=== PATIENT | male | born 1950 | race Caucasian/White ===

== ENCOUNTER 2021-07-12 09:52 | Day surgery (SDC) | payer OTHER ==
[~2021-07-12] VITALS: Ht 182.9 cm; Wt 90.7 kg
[~2021-07-12 09:52] MED LIST: DIAZ5TAB4 PO; LIPA1CAP18 PO; MELO15TA12 PO; OMEP-272 PO; TRAM50TA4 PO
[2021-07-12] MEDS ORDERED: 0.9%NACL 1000ML 1,000 ML IV ONE (10:13)
[2021-07-12 10:44] VITALS: BP 127/58
[2021-07-12] MEDS ORDERED: EPHEDRINE SULFATE 50 MG/ML AMPULE ONE (12:24)
[2021-07-12] MEDS ORDERED: PROPOFOL 10 MG/ML 20ML VIAL IV ONE (12:24)
== END 2021-07-12 13:45 | disposition home or self-care (01) ==
LOC: DAH 09:52 → ENDO 09:52
PROVIDERS: ATTEND Internal Medicine Gastroenterology
DX: R93.2 Abnormal findings on diagnostic imaging of liver and biliary tract (principal); K86.1 Other chronic pancreatitis; Z20.822 Contact with and (suspected) exposure to COVID-19; K21.9 Gastro-esophageal reflux disease without esophagitis; K29.50 Unspecified chronic gastritis without bleeding; Z98.890 Other specified postprocedural states; Z79.899 Other long term (current) drug therapy; Z90.49 Acquired absence of other specified parts of digestive tract; Z72.89 Other problems related to lifestyle
CPT/HCPCS: 43259; 87635; 93005; A4215 ×2; A4221; A4222; A4223; A4606; A4620; A4657; A4663; C9803; J2704; J3490; J7030

== ENCOUNTER → 2022-07-30 | Outpatient (CLI) | payer OTHER ==
[~2022-07-30] MED LIST changes: +GADOTERATE MEGLUMINE 10 MMOL/20 ML VIAL IV ONE
== END | disposition home or self-care (01) ==
LOC: RAH 08:42
PROVIDERS: ATTEND Internal Medicine
DX: R93.2 Abnormal findings on diagnostic imaging of liver and biliary tract (principal)
CPT/HCPCS: 74183; A9575

== ENCOUNTER 2023-10-22 08:05 | Day surgery (SDC) | payer OTHER ==
[2023-10-22] VITALS (14 sets, daily range): BP systolic 100–131; BP diastolic 51–79; PULSE 47–60; RESP 14–20
[~2023-10-22] VITALS: Ht 182.9 cm; Wt 90.7 kg
[~2023-10-22 08:05] MED LIST changes: +0.9%NACL 1000ML 1,000 ML IV ONE; -DIAZ5TAB4 PO; -GADOTERATE MEGLUMINE 10 MMOL/20 ML VIAL IV ONE; -MELO15TA12 PO; -TRAM50TA4 PO
[2023-10-22] MEDS ORDERED: PROPOFOL 10 MG/ML 20ML VIAL IV ONE ×2 (11:17→11:56)
== END 2023-10-22 13:30 | disposition home or self-care (01) ==
LOC: ENDO 08:05 → DAH 08:05 → ENDO 13:30
PROVIDERS: ATTEND Internal Medicine Gastroenterology
DX: R93.5 Abnormal findings on diagnostic imaging of other abdominal regions, including retroperitoneum (principal); R10.11 Right upper quadrant pain; K86.1 Other chronic pancreatitis; K86.89 Other specified diseases of pancreas; K76.0 Fatty (change of) liver, not elsewhere classified; K21.9 Gastro-esophageal reflux disease without esophagitis; Z90.49 Acquired absence of other specified parts of digestive tract; Z86.19 Personal history of other infectious and parasitic diseases
CPT/HCPCS: 43237; J7030 ×2; J2704; A4620; A4215 ×2; A4223; A7002; A4222; A4221; A4663; A4606; J3490

== ENCOUNTER 2025-02-17 09:21 | Day surgery (SDC) | payer OTHER ==
[~2025-02-17] VITALS: Ht 182.9 cm; Wt 88.5 kg
[2025-02-17] VITALS (14 sets, daily range): BP systolic 116–140; BP diastolic 47–72; PULSE 47–60; RESP 15–20; TEMP 97.3–97.7
[~2025-02-17 09:21] MED LIST changes: -0.9%NACL 1000ML 1,000 ML IV ONE; -OMEP-272 PO; +OMEP40CA21 PO; +ROSU40 PO
[2025-02-17] MEDS ORDERED: INDOMETHACIN 100 MG SUPP.RECT RC ONE (09:30)
[2025-02-17] MEDS: 0.9%NACL 1000ML 1,000 ML IV ONE (09:42)
[2025-02-17] MEDS ORDERED: SUCCINYLCHOLINE CHLORIDE 20 MG/ML 10 ML VIAL ONE (11:34)
[2025-02-17] MEDS ORDERED: ondanSETRON 4MG INJ ONE (11:34)
[2025-02-17] MEDS ORDERED: proPOFol 10 MG/ML 20ML VIAL IV ONE (11:34)
[2025-02-17] MEDS: ondanSETRON 4MG INJ ONE (12:49)
[2025-02-17] MEDS ORDERED: IOHEXOL-350 50ML VIAL IV ONE (12:53)
--- NOTE | 2025-02-17 13:02 | HMCIMG ---
Fluoroscopic guidance History: CHOLECOCHOLITHIASIS Fluoroscopic guidance provided. Procedure by ordering physician in operating room suite with fluoroscopic guidance. Several spot images were obtained. Impression: Fluoroscopic guidance.
== END 2025-02-17 13:34 | disposition home or self-care (01) ==
LOC: ENDO 09:21 → DAH 09:21 → ENDO 13:34
PROVIDERS: ATTEND Internal Medicine
DX: Z46.59 Encounter for fitting and adjustment of other gastrointestinal appliance and device (principal); K80.50 Calculus of bile duct without cholangitis or cholecystitis without obstruction; K83.8 Other specified diseases of biliary tract; T85.590A Other mechanical complication of bile duct prosthesis, initial encounter; R93.3 Abnormal findings on diagnostic imaging of other parts of digestive tract; K86.1 Other chronic pancreatitis; K29.50 Unspecified chronic gastritis without bleeding; K21.9 Gastro-esophageal reflux disease without esophagitis; R10.11 Right upper quadrant pain; K76.0 Fatty (change of) liver, not elsewhere classified; F10.90 Alcohol use, unspecified, uncomplicated; R12 Heartburn; Z79.899 Other long term (current) drug therapy; Z87.898 Personal history of other specified conditions; Z86.19 Personal history of other infectious and parasitic diseases; Z90.49 Acquired absence of other specified parts of digestive tract; Z45.89 Encounter for adjustment and management of other implanted devices; Y73.2 Prosthetic and other implants, materials and accessory gastroenterology and urology devices associated with adverse incidents
CPT/HCPCS: 43264; 74328; 43275; J0330; J7030 ×2; J2704; J2405 ×2; Q9967; A4215 ×2; A4223; A4657; A7002; A4222; A4221; A4663; A4216; A4606; C1769; J3490